=== PATIENT | male | born 1995 | race Caucasian/White ===

== ENCOUNTER 2019-03-17 11:39 | Emergency (ER) | payer BC, MEDICAID ==
--- NOTE | 2019-03-17 11:54 | ED ---
Psychiatric Complaint - HPI Summary HPI Summary: Patient is a 23 y/o M presenting to [facility] via EMS for MHE. He is currently at the [facility] for substance abuse rehabilitation. Patient reports that he last used heroin and cocaine 2.5 weeks ago. It is reported that the patient was going to be transferred to another facility. However, last night the patient had gotten into an argument with another patient at his present facility. It is reported that the patient had made threats of self-harm, but this is characterized as the patient having had an outburst of anger. However, the facility which he is being transferred to will not take him without a MHE done prior. Patient denies SI. He reports Hx of suicide attempt, depression and anxiety for which he takes medications. He is a current smoker of tobacco and endorses rare alcohol usage. He also states that he had an episode of rhabdomyolysis with subsequent liver and kidney failure and two days of dialysis. He denies PSHx. On triage, pain is rated 0/10. Home medications and allergies are reviewed. - History Of Current Complaint Time Seen by Provider: 03/17/19 11:43 Hx Obtained From: Patient Onset/Duration: Resolved - no SI Severity Currently: None - 0/10 Aggravating Factor(s): Nothing Alleviating Factor(s): Nothing Has Suicidal: Reports: Has Prior Attempt(s). Denies: Thoughts - Allergies/Home Medications Allergies/Adverse Reactions: Allergies Allergy/AdvReac Type Severity Reaction Status Date / Time No Known Allergies Allergy Verified 03/17/19 15:13 Home Medications: Home Medications Buprenorp/Nalox 8-2 MG SL TAB [Suboxone 8-2 mg SL TAB*] 1 tab.sl SL BID [History Confirmed 03/17/19] Methylphenidate ER (NF) [Concerta (NF)] 54 mg PO DAILY 03/17/19 [History Confirmed 03/17/19] QUEtiapine TAB* [Seroquel 100 MG *] 75 mg PO BEDTIME 03/17/19 [History Confirmed 03/17/19] PMH/Surg Hx/FS Hx/Imm Hx Sensory History: Denies: Hx Legally Blind, Hx Deafness Opthamlomology History: Denies: Hx Legally Blind EENT History: Denies: Hx Deafness Psychiatric History: Reports: Hx Anxiety, Hx Depression, Hx Substance Abuse - Family History Known Family History: Positive: Other - no FMHx of anxiety or depression - Social History Alcohol Use: Rare Hx Substance Use: Yes Substance Use Type: Reports: Cocaine - Hx of , Heroin - Hx of Review of Systems Negative: Fever - on vitals, temp is 98 F Psychological: Other - negative - SI All Other Systems Reviewed And Are Negative: Yes Physical Exam - Summary Physical Exam Summary: VITAL SIGNS: Reviewed. GENERAL: Patient is a well-developed and nourished male who is lying comfortable in the stretcher. Patient is not in any acute respiratory distress. HEAD AND FACE: No signs of trauma. No ecchymosis, hematomas or skull depressions. No sinus tenderness. EYES: PERRLA, EOMI x 2, No injected conjunctiva, no nystagmus. EARS: Hearing grossly intact. Ear canals and tympanic membranes are within normal limits. MOUTH: Oropharynx within normal limits. NECK: Supple, trachea is midline, no adenopathy, no JVD, no carotid bruit, no c- spine tenderness, neck with full ROM. CHEST: Symmetric, no tenderness at palpation. LUNGS: Clear to auscultation bilaterally. No wheezing or crackles. CVS: Regular rate and rhythm, S1 and S2 present, no murmurs or gallops appreciated. ABDOMEN: Soft, non-tender. No signs of distention. No rebound, no guarding, and no masses palpated. Bowel sounds are normal. EXTREMITIES: FROM in all major joints, no edema, no cyanosis or clubbing. NEURO: Alert and oriented x 3. No acute neurological deficits. Speech is normal and follows commands. SKIN: Dry and warm. Scars on forearms. Triage Information Reviewed: Yes Vital Signs On Initial Exam: Initial Vitals Temp Pulse Resp BP Pulse Ox 98 F 78 16 122/71 100 03/17/19 11:49 03/17/19 11:49 03/17/19 11:49 03/17/19 11:49 03/17/19 11:49 Vital Signs Reviewed: Yes Procedures - Sedation Patient Received Moderate/Deep Sedation with Procedure: No Diagnostics - Laboratory Result Diagrams: 03/17/19 12:03 03/17/19 12:03 Lab Statement: Any lab studies that have been ordered have been reviewed, and results considered in the medical decision making process. Re-Evaluation - Re-Evaluation First Eval Re-Evaluation Time: 11:47 Comment: Patient was medically cleared for MHE Course/Dx - Course Assessment/Plan: Patient is a 23 y/o M presenting to [facility] via EMS for MHE. He is currently at the [facility] for substance abuse rehabilitation. Patient reports that he last used heroin and cocaine 2.5 weeks ago. It is reported that the patient was going to be transferred to another facility. However, last night the patient had gotten into an argument with another patient at his present facility. It is reported that the patient had made threats of self-harm, but this is characterized as the patient having had an outburst of anger. However, the facility which he is being transferred to will not take him without a MHE done prior. He reports Hx of suicide attempt, depression and anxiety for which he takes medications. Blood work w/o a significant abnormality. He is medically cleared. He is awaiting a MHE. Patient is hemodynamically stable and A+O x 3. Dr. Klein (Psychiatry) assess patient and clear the patient and recommends to discharge back to his center for rehab. - Differential Dx/Clinical Impression Differential Diagnosis/HQI/PQRI: Positive: Anxiety, Depression, Suicidal Ideation Provider Diagnosis: Depression - Physician Notifications Discussed Care Of Patient With: Mike Klein Time Discussed With Above Provider: 13:54 Instructed by Provider To: Other - resp ther Franki reports that the patient' s case was reviewed by Dr. Klein, patient was discharged with Dx of depression Discharge ED - Sign-Out/Discharge Documenting (check all that apply): Patient Departure - discharge - Discharge Plan Condition: Stable Disposition: HOME Patient Education Materials: Depression (ED) Referrals: No Primary Care Phys,NOPCP [Primary Care Provider] - - Billing Disposition and Condition Condition: STABLE Disposition: Home - Attestation Statements Document Initiated by Scribe: Yes Documenting Scribe: DARBY UMAÑA Provider For Whom Gabe is Documenting (Include Credential): MACY ADKINS MD Scribe Attestation: DARBY Hilton, scribed for MACY ADKINS MD on 03/19/19 at 0918. Scribe Documentation Reviewed: Yes Provider Attestation: The documentation as recorded by the DARBY dolan accurately reflects the service I personally performed and the decisions made by me, MACY ADKINS MD Status of Scribe Document: Viewed
[2019-03-17 12:12] LABS: ABS Basophils 0.1 10^3/ul (0-0.2); ABS Eosinophils 0.1 10^3/ul (0-0.6); ABS Lymphocytes 1.5 10^3/ul (1.0-4.8); ABS Monocytes 0.5 10^3/ul (0-0.8); ABS Neutrophils 2.7 10^3/ul (1.5-7.7); Eosinophil % 2.5 %; Hematocrit 40 % (42-52); Hemoglobin 13.8 g/dL (14.0-18.0); Lymphocyte % 31.5 %; Mean Corpuscular HGB Conc 35 g/dL (31-36); Mean Corpuscular Hemoglobin 30 pg (27-31); Mean Corpuscular Volume 85 fL (80-94); Nucleated Red Blood Cells % 0.3; Platelet Count 253 10^3/uL (150-450); Red Blood Count 4.68 10^6 /uL (4.18-5.48); Red Cell Distribution Width 13 % (10-15); White Blood Count 4.9 10^3/uL (3.5-10.8)
[2019-03-17 12:33] LABS: ALT 26 U/L (7-52); AST 26 U/L (13-39); Albumin 4.6 g/dL (3.2-5.2); Albumin/Globulin Ratio 2.2 (1-3); Alkaline Phosphatase 58 U/L (34-104); Anion Gap 5 mmol/L (2-11); Blood Urea Nitrogen 16 mg/dL (6-24); CO2 Carbon Dioxide 33 mmol/L (22-32); Chloride 103 mmol/L (101-111); EGFR African American 114.1 (>60); EGFR Non-African American 94.3 (>60); Globulin 2.1 g/dL (2-4); Glucose 93 mg/dL (70-100); Potassium 3.8 mmol/L (3.5-5.0); Sodium 141 mmol/L (135-145); Total Protein 6.7 g/dL (6.4-8.9)
[2019-03-17 12:34] LABS: Acetaminophen < 15 mcg/mL; Alcohol < 10 mg/dL (<10); Salicylate < 2.50 mg/dL (<30)
[2019-03-17 12:46] LABS: TSH (Thyroid Stimulating Horm) 2.23 mcIU/mL (0.34-5.60)
[2019-03-17 12:56] LABS: Urine Appearance Clear; Urine Bilirubin Negative (Negative); Urine Blood Negative (Negative); Urine Color Yellow; Urine Glucose Negative (Negative); Urine Ketones Negative (Negative); Urine Nitrite Negative (Negative); Urine Protein Negative (Negative); Urine Specific Gravity 1.019 (1.010-1.030); Urine Urobilinogen Negative (Negative)
[2019-03-17 13:20] LABS: Urine Benzodiazepine Screen None Detected (None Detect); Urine Opiates Screen None Detected (None Detect)
== END 2019-03-17 14:03 | disposition home or self-care (01) ==
LOC: ED 11:39
DX: F32.9 Major depressive disorder, single episode, unspecified (principal); F41.9 Anxiety disorder, unspecified; Z79.899 Other long term (current) drug therapy
CPT/HCPCS: 36415; 80053; 80307; 80320; 80329; 81003; 84443; 85025; 99285; G0480